=== PATIENT | female | born 1990 | race Caucasian/White ===

== ENCOUNTER 2021-09-06 01:14 | Emergency (ER) | payer OTHER, SELFPAY ==
[2021-09-06 01:16] VITALS: BP 140/82; PULSE 90; RESP 18; TEMP 36.9; O2SAT 98
--- NOTE | 2021-09-06 01:50 | ED.BACK ---
HPI - Back Pain/Injury General Chief Complaint: Back Pain/Injury Stated Complaint: back spasms gave fentanyl Time Seen by Provider: 09/06/21 01:36 Source: patient History of Present Illness HPI Narrative: Patient presents with left lower back pain. Patient has had pain for the past couple days constant but getting worse. Reports she feels like her back is been spasming intermittently. Symptoms started when she felt a shooting pain after picking up her child. Pain now is constant achy worse with movement of the torso, no radiation. Denies any recent spinal instrumentation fevers, IV drug use. When she uses a muscle laxer, earlier in the evening had really ER for further management. She denies any bowel or bladder incontinence denies any numbness or tingling denies any focal weakness Related Data Allergies Allergy/AdvReac Type Severity Reaction Status Date / Time ibuprofen Allergy Hives Verified 09/06/21 01:23 Review of Systems Review of Systems: CONSTITUTIONAL: Denies fever, chills, or sweats. EYES: Denies visual changes, redness, or discharge. ENT: Denies rhinorrhea, congestion, sore throat, or otalgia. CARDIOVASCULAR: Denies chest pain, palpitations, or edema. RESPIRATORY: Denies cough or dyspnea. GASTROINTESTINAL: Denies abdominal pain, nausea, vomiting, or diarrhea. GENITOURINARY: Denies dysuria or hematuria. SKIN: Denies rash or itching. MUSCULOSKELETAL: Denies joint pain, or myalgia. NEUROLOGIC: Denies headache, numbness, dizziness, or weakness. PSYCHIATRIC: Denies anxiety or depression. All systems reviewed & are unremarkable except as noted in HPI and below PMFSH Past Medical History Medical History (Updated 09/06/21 @ 02:43 by Erwin Gomes MD) Patient denies significant medical history Social History Social History (Updated 09/06/21 @ 01:52 by Erwin Gomes MD) Living arrangements: with family Course Reevaluation(s) Reevaluation #1: Patient resting comfortably discussed primary concern is for musculoskeletal back pain there is low concern for cauda equina or cord compromise renal stones. PVR was less than 100 the discussed further imaging and studies likely had a low utility. Patient and family want to do a UA to evaluate for hematuria from possible stone. UA return was heavily contaminated patient is on her menses. However will empirically treat given UA findings family have low concern for kidney stone to attempt supportive therapies without imaging. Patient denied any urinary symptoms will wait for culture results. Date: 09/06/21 Time: 02:33 Vital Signs Vital signs: Vital Signs Temperature 36.9 C 09/06/21 01:16 Pulse Rate 90 09/06/21 01:16 Respiratory Rate 18 09/06/21 01:16 Blood Pressure 140/82 09/06/21 01:16 Pulse Oximetry 98 09/06/21 01:16 Oxygen Delivery Room Air 09/06/21 01:16 Temperature 36.9 C 09/06/21 01:16 Pulse Rate 67 09/06/21 02:52 Respiratory Rate 18 09/06/21 02:52 Blood Pressure 143/93 H 09/06/21 02:52 Pulse Oximetry 100 09/06/21 02:52 Oxygen Delivery Room Air 09/06/21 01:16 MDM - Back Pain/Injury MDM Narrative Medical decision making narrative: H&P as above, vss, pt looks clinically well, exam with tenderness on the left lower back, labs UA heavily contaminated, additional labs/img considered, symptomatic relief available as needed, on reevaluation pt continues to looks clinically well. Suspect muscle strain, dns pyelonephritis, severe sepsis, fracture, cord compromise, cauda equina, conus medullarisplan to tx/monitor as op w/ pcm f/u findings/plan discussed with pt, pt agree/comfortable with plan, return precautions given Lab Data Labs: Lab Results 09/06/21 Range/Units 02:05 Urine Color Red H (Yellow) Urine Appearance Cloudy H (Clear) Urine pH 6.0 (5.0-9.0) Ur Specific [place] 1.020 (1.001-1.035) Urine Protein 2+ H (Negative) mg/dL Urine Glucose (UA) Negative (Negative) mg/dL Urine [place]
[2021-09-06 02:12] LABS: Add Urine Microscopic? YES; Appearance Urine Cloudy (Clear); Bilirubin Urine 1+ (Negative); Blood Urine 3+ (Negative); Color Urine Red (Yellow); Glucose Urine UA Negative (Negative); Ketones Urine 2+ mg/dL (Negative); Leukocyte Esterase Ur Trace LEU/UL (Negative); Nitrate Urine Negative (Negative); Protein Urine 2+ mg/dL (Negative); Urobilinogen Urine 0.2 mg/dL (<2.0)
[2021-09-06 02:16] LABS: Bacteria Urine Trace /hpf; Mucus Urine Rare /lpf; RBC Urine >75 /hpf (0-2); Squamous Epithelial Cell Urine Few /hpf (Few); WBC Clumps Urine Present /HPF; WBC Urine >75 /hpf
[2021-09-06] MEDS: CYCLOBENZAPRINE HCL 10 MG TABLET PO (02:37)
[2021-09-06 02:52] VITALS: BP 143/93; PULSE 67; RESP 18; O2SAT 100
== END 2021-09-06 02:44 | disposition home or self-care (01) ==
PROVIDERS: Emergency Provider Emergency Medicine; PCP Internal Medicine
DX: N39.0 Urinary tract infection, site not specified (principal); M54.50 Low back pain, unspecified
CPT/HCPCS: 81001; 87086; 87088; 99283; A9270